=== PATIENT | male | born 1955 | race Caucasian/White ===

== ENCOUNTER 2018-03-28 17:48 | Emergency (ER) | payer SELFPAY ==
[~2018-03-28] VITALS: Ht 162.6 cm; Wt 71.7 kg
--- NOTE | 2018-03-28 18:07 | PHYS DOC ---
Adult General HPI HPI Patient is a 62 year old male who presents with left side facial droop and left side weakness. 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 He awoke about 2 hours prior to presentation with left-sided weakness and slurred speech he. He also had some loss of vision in the left visual almanza in the left eye. His last known normal was around noon today. The patient has no stroke history. He does have prior history of open-heart surgery. He has multiple stents in place. He states he does take some sort of anticoagulant medications but does not know what they are and he does not have them with him. Denies chest pain. He was at baseline health prior to onset of symptoms today. Review of Systems Review of Systems Constitutional: Denies fever or chills Eyes: Denies change in visual acuity HENT: Denies nasal congestion Respiratory: Denies cough or shortness of breath Cardiovascular: No additional information not addressed in HPI GI: Denies abdominal pain : Denies dysuria Musculoskeletal: Denies back pain or joint pain Integument: Denies rash or skin lesions Neurologic: Denies headache Endocrine: Denies polyuria All other systems were reviewed and found to be within normal limits, except as documented in this note. Current Medications Current Medications Current Medications Medications (Trade) Dose Ordered Sig/Zeynep Start Time Stop Time Status Last Admin Dose Admin Aspirin (Aspirin) 300 mg 1X ONCE 03/28/18 18:15 03/28/18 19:03 DC 03/28/18 20:04 300 MG Info (CONTRAST GIVEN -- Rx MONITORING) 1 each PRN DAILY PRN 03/28/18 19:15 03/30/18 19:14 Iohexol (Omnipaque 300 Mg/ml) 75 ml 1X ONCE 03/28/18 18:30 03/28/18 19:03 DC 03/28/18 18:30 60 ML Lorazepam (Ativan) 0.5 mg 1X ONCE 03/28/18 18:30 03/28/18 19:03 DC 03/28/18 19:35 0.5 MG Ondansetron HCl (Zofran) 4 mg PRN Q8HRS PRN 03/28/18 19:30 03/29/18 19:29 Sodium Chloride 1,000 ml @ 75 mls/hr [id number] 03/28/18 19:28 03/29/18 19:27 Allergies Allergies Allergies Coded Allergies Type Severity Reaction Last Updated Verified No Known Drug Allergies 03/28/18 No Physical Exam Physical Exam Constitutional: Well developed, well nourished, no acute distress, non-toxic appearance HENT: Normocephalic, atraumatic, bilateral external ears normal, oropharynx moist Eyes: PERRLA, EOMI, conjunctiva normal Neck: Normal range of motion, no tenderness Cardiovascular:Heart rate regular rhythm, no murmur Lungs & Thorax: Bilateral breath sounds clear to auscultation Abdomen: Bowel sounds normal, soft, no tenderness Skin: Warm, dry, no erythema Extremities: No tenderness, no edema Neurologic: Alert and oriented X 3, motor weakness in left upper and lower extremities. Left side facial droop. Slurred speech. Loss of vision over temporal visual almanza in the left eye. Psychologic: Affect normal Current Patient Data Lab Values Laboratory Tests Test 03/28/18 18:10 White Blood Count 12.8 x10^3/uL (4.0-11.0) H Red Blood Count 4.86 x10^6/uL (4.30-5.70) Hemoglobin 15.1 g/dL (13.0-17.5) Hematocrit 44.7 % (39.0-53.0) Mean Corpuscular Volume 92 fL (79-100) Mean Corpuscular Hemoglobin 31 pg (25-35) Mean Corpuscular Hemoglobin Concent 34 g/dL (31-37) Red Cell Distribution Width 14.2 % (11.5-14.5) Platelet Count 265 x10^3/uL (140-400) Neutrophils (%) (Auto) 82 % (31-73) H Lymphocytes (%) (Auto) 12 % (24-48) L Monocytes (%) (Auto) 4 % (0-9) Eosinophils (%) (Auto) 1 % (0-3) Basophils (%) (Auto) 1 % (0-3) Neutrophils # (Auto) 10.5 x10^3uL (1.8-7.7) H Lymphocytes # (Auto) 1.6 x10^3/uL (1.0-4.8) Monocytes # (Auto) 0.5 x10^3/uL (0.0-1.1) Eosinophils # (Auto) 0.1 x10^3/uL (0.0-0.7) Basophils # (Auto) 0.1 x10^3/uL (0.0-0.2) Prothrombin Time 13.0 SEC (11.7-14.0) Prothrombin Time INR 1.0 (0.8-1.1) PTT 27 SEC (24-38) Sodium Level 139 mmol/L (136-145) Potassium Level 3.7 mmol/L (3.5-5.1) Chloride Level 107 mmol/L (98-107) Carbon Dioxide Level 24 mmol/L (21-32) Anion Gap 8 (6-14) Blood Urea Nitrogen 17 mg/dL (8-26) Creatinine 1.3 mg/dL (0.7-1.3) Estimated GFR (Cockcroft-Gault) 56.1 Glucose Level 115 mg/dL (70-99) H Calcium Level 8.9 mg/dL (8.5-10.1) Troponin I Quantitative < 0.017 ng/mL (0.000-0.055) Laboratory Tests 03/28/18 18:10 Laboratory Tests 03/28/18 18:10 EKG EKG No STEMI Interpretation Time: 18:20 Radiology/Procedures Radiology/Procedures FINDINGS: There is mild motion artifact limiting optimal evaluation. No obvious evidence of pathologic extra-axial or intra-axial fluid collection. The ventricles and basal cisterns are within normal limits. No apparent large acute intracranial bleed. 6 mm focus of low attenuation in the left basal ganglia. There is a focus of low attenuation in the right parietal lobe extending from the lateral ventricle to the subcortical white matter. No suspicious calvarial lesions. Visualized paranasal sinuses and mastoid air cells are clear. Hypoplastic right mastoid air cells. IMPRESSION: Significant motion artifact limiting optimal evaluation. 1. Subcentimeter focus of low attenuation in the left basal ganglia most likely lacunar infarct, age indeterminate. 2. Small area of low-attenuation in the right parietal lobe extending from the lateral ventricle to the subcortical white matter may represent an infarct, age indeterminate or white matter changes from chronic microvascular ischemic disease. If concern for acute ischemic stroke is high, please consider MRI brain. FINDINGS: There is mild motion artifact limiting optimal evaluation. No obvious evidence of pathologic extra-axial or intra-axial fluid collection. The ventricles and basal cisterns are within normal limits. No apparent large acute intracranial bleed. 6 mm focus of low attenuation in the left basal ganglia. There is a focus of low attenuation in the right parietal lobe extending from the lateral ventricle to the subcortical white matter. No suspicious calvarial lesions. Visualized paranasal sinuses and mastoid air cells are clear. Hypoplastic right mastoid air cells. IMPRESSION: Significant motion artifact limiting optimal evaluation. 1. Subcentimeter focus of low attenuation in the left basal ganglia most likely lacunar infarct, age indeterminate. 2. Small area of low-attenuation in the right parietal lobe extending from the lateral ventricle to the subcortical white matter may represent an infarct, age indeterminate or white matter changes from chronic microvascular ischemic disease. If concern for acute ischemic stroke is high, please consider MRI brain. Critical findings were identified on 03/28/2018 6:03 PM, read back and verified with Dr. Bell on 03/28/2018 6:[address] Armando Tobin DO. Course & Med Decision Making Course & Med Decision Making Pertinent Labs and Imaging studies reviewed. (See chart for details) Patient is seen and examined immediately on arrival. The patient is unclear what time symptom onset occurred. He had been sleeping since noon. He awoke with symptoms. Additionally, the patient is on some anticoagulation type medications, but he cannot say what these are. He has history of prior stents so suspect some platelet inhibitor. In the emergency department, the patient was taken immediately to CT scan. His scan was returned as documented above. His symptoms are on the left side. NIH 9 18:55: CT scan is returned with some nonspecific findings. I discussed this patient with the acute ischemic stroke coverage team at [facility]. They encouraged a CT angiogram. Patient is already in CT for that study. 19:55: CT angiogram results are returned and documented above with a occlusion at the superior right him to short segment. I again discussed these findings with the neurologist at [facility] who did recommend transferring the patient for intervention. I discussed this plan of care with the patient. The patient is agreeable to transfer. The appropriate paperwork is completed. EMS is contacted to provide transportation. Accepting physician is Dr. Baca. Maddison Disclaimer Maddison Disclaimer This electronic medical record was generated, in whole or in part, using a voice recognition dictation system. MICHAELA BELL DO Mar 28, 2018 18:07
[2018-03-28] MEDS ORDERED: IV NORMAL SALINE 1000ML BAG 1,000 ML IV ONE (18:15)
[2018-03-28] MEDS ORDERED: ASPIRIN 300 MG SUPP.RECT PR ONE (18:15)
--- NOTE | 2018-03-28 18:15 | RAD ---
PQRS Compliance statement: One or more of the following individualized dose reduction techniques were utilized for this examination: 1. Automated exposure control. 2. Adjustment of the mA and/or kV according to patient size. 3. Use of iterative reconstruction technique. Indication:CODE STROKE, left SIDE WEAKNESS, FACIAL DROOP. NO PREVIOUS TECHNIQUE: CT head without IV contrast COMPARISON:None FINDINGS: There is mild motion artifact limiting optimal evaluation. No obvious evidence of pathologic extra-axial or intra-axial fluid collection. The ventricles and basal cisterns are within normal limits. No apparent large acute intracranial bleed. 6 mm focus of low attenuation in the left basal ganglia. There is a focus of low attenuation in the right parietal lobe extending from the lateral ventricle to the subcortical white matter. No suspicious calvarial lesions. Visualized paranasal sinuses and mastoid air cells are clear. Hypoplastic right mastoid air cells. IMPRESSION: Significant motion artifact limiting optimal evaluation. 1. Subcentimeter focus of low attenuation in the left basal ganglia most likely lacunar infarct, age indeterminate. 2. Small area of low-attenuation in the right parietal lobe extending from the lateral ventricle to the subcortical white matter may represent an infarct, age indeterminate or white matter changes from chronic microvascular ischemic disease. If concern for acute ischemic stroke is high, please consider MRI brain. Critical findings were identified on 03/28/2018 6:03 PM, read back and verified with Dr. Bell on 03/28/2018 6:[address] Armando Tobin DO. Electronically signed by: Armando Tobin DO (03/28/2018 6:12 PM) [facility]
[2018-03-28 18:20] LABS: BASO # 0.1 x10^3/uL (0.0-0.2); BASO % 1 % (0-3); EOS # 0.1 x10^3/uL (0.0-0.7); EOS % 1 % (0-3); HEMATOCRIT 44.7 % (39.0-53.0); HEMOGLOBIN 15.1 g/dL (13.0-17.5); LYMPH # 1.6 x10^3/uL (1.0-4.8); LYMPH % 12 % (24-48); MEAN CORPUSCULAR HEMOGLOBIN 31 pg (25-35); MEAN CORPUSCULAR HGB CONC 34 g/dL (31-37); MEAN CORPUSCULAR VOLUME 92 fL (79-100); MONO # 0.5 x10^3/uL (0.0-1.1); MONO % 4 % (0-9); NEUT # 10.5 x10^3uL (1.8-7.7); NEUT % 82 % (31-73); PLATELET COUNT 265 x10^3/uL (140-400); RED BLOOD COUNT 4.86 x10^6/uL (4.30-5.70); RED CELL DISTRIBUTION WIDTH 14.2 % (11.5-14.5); WHITE BLOOD COUNT 12.8 x10^3/uL (4.0-11.0)
[2018-03-28] MEDS ORDERED: IOHEXOL 300 MG/ML 100ML VIAL. IV ONE (18:30)
[2018-03-28 18:31] LABS: CALCIUM 8.9 mg/dL (8.5-10.1); CREATININE 1.3 mg/dL (0.7-1.3); GFR 56.1; POTASSIUM 3.7 mmol/L (3.5-5.1)
[2018-03-28] MEDS ORDERED: CONTRAST GIVEN. MC PRN (19:15)
[2018-03-28] MEDS ORDERED: IV NORMAL SALINE 1000ML BAG 1,000 ML IV SCH (19:28)
[2018-03-28] MEDS ORDERED: ONDANSETRON PF 4 MG/2 ML VIAL. IV PRN (19:30)
--- NOTE | 2018-03-28 19:46 | RAD ---
PQRS Compliance statement: One or more of the following individualized dose reduction techniques were utilized for this examination: 1. Automated exposure control. 2. Adjustment of the mA and/or kV according to patient size. 3. Use of iterative reconstruction technique. Indication:LEFT SIDE FACIAL DROOP AND COMPLETE LEFT SIDE WEAKNESS TECHNIQUE: CT angiogram of the head and neck with IV contrast with multiplanar MIP reformats. 3-D volume rendered postprocessing was performed. Stenosis was calculated using NASCET criteria. COMPARISON: None FINDINGS: The A1, A2, A3 segments of the bilateral CARLOS are patent. There is focal nonopacification of the superior M2 segment of the right MCA. The M1, M2, M3 segments of the left MCA are patent. The basilar artery is patent. The P1, P2 and P3 segments of the bilateral INFANTRY OFFICER are patent. Bilateral superior cerebellar arteries are patent. Bilateral anterior inferior cerebellar arteries are seen. The bilateral posterior inferior cerebellar arteries are patent. The bilateral vertebral arteries are patent. Bilateral cavernous and petrous segments of the ICA are patent. The bilateral extracranial ICA are patent with mild atherosclerotic disease at the carotid bulb. There is less than 25 percent narrowing of the origin of the left ICA. Bilateral common carotid arteries are patent. Conventional arch anatomy. Moderate atherosclerotic disease is seen in the origin of the left subclavian artery causing 50 percent narrowing. Bilateral. Arteries are patent. The major dural venous sinuses are patent. Bilateral ophthalmic arteries are patent. Orbits within normal limits. No enhancing brain lesion. The nasopharynx, oropharynx and hypopharynx are within normal limits. The submandibular glands, parotid glands and thyroid are within normal limits. No deep cervical adenopathy. Visualized lungs are clear. No suspicious bony lesion. There is complete opacification of the left maxillary sinus. IMPRESSION: 1. Focal nonopacification of the superior M2 segment of the right MCA concerning for occlusion. Clinically correlate with symptoms. Critical findings were identified on 03/28/2018 7:22 PM, read back and verified with Dr. Bell on 03/28/2018 7:[address] Armando Tobin DO. Electronically signed by: Armando Tobin DO (03/28/2018 7:43 PM) [facility]
[2018-03-28 19:50] VITALS: BP 196/99
--- NOTE | 2018-03-28 20:30 | HP ---
ADMIT DATE: 03/28/2018 CHIEF COMPLAINT: Mental status change, left facial droop, left-sided weakness. HISTORY OF PRESENT ILLNESS: The patient is a pleasant 62-year-old male who presented to the ER with above chief complaints. Basically, for the past day or so he has had left-sided weakness. 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 He is really not sure what time this all started. He fell asleep in his cab earlier, awoke 2 hours prior to the arrival to the ER and has these symptoms, left-sided weakness, left facial droop and some slurred speech. He seems to have some mental status change, he is also impulsive. He has got some visual field deficits. We checked a CAT scan in the ER. There is an old basal ganglia stroke on the left, but there is also a possible new right parietal stroke. We are going to admit the patient and consult Neurology. PAST MEDICAL HISTORY: None reported. ALLERGIES: None reported. FAMILY HISTORY: Diabetes. 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 He drinks socially. No drugs or smoking. MEDICATIONS: Reviewed, please refer to the MRAD. REVIEW OF SYSTEMS: GENERAL: No history of weight change, weakness or fevers. SKIN: No bruising, hair changes or rashes. EYES: No blurred, double or loss of vision. NOSE AND THROAT: No history of nosebleeds, hoarseness or sore throat. HEART: No history of palpitations, chest pain or shortness of breath on exertion. LUNGS: Denies cough, hemoptysis, wheezing or shortness of breath. GASTROINTESTINAL: Denies changes in appetite, nausea, vomiting, diarrhea or constipation. GENITOURINARY: No history of frequency, urgency, hesitancy or nocturia. NEUROLOGIC: He complains of left-sided weakness and left facial drooping and slurred speech. PSYCHIATRIC: No history of panic, anxiety or depression. ENDOCRINE: No history of heat or cold intolerance, polyuria or polydipsia. EXTREMITIES: Denies muscle weakness, joint pain, pain on walking or stiffness. PHYSICAL EXAMINATION: VITAL SIGNS: Temperature afebrile, pulse 92, respirations 18, blood pressure 142/90. GENERAL: He is in the ER room 3, seems to be impulsive. He asked me to give his glasses, I did. HEART: Distant S1, S2. LUNGS: Mostly clear. ABDOMEN: Soft. EXTREMITIES: Trace edema. SKIN: No rashes. ENDOCRINE: No thyromegaly. LYMPHATICS: No cervical nodes. HEMATOPOIETIC: No bruising. NEUROLOGIC: He has got left facial droop and left-sided weakness. He is also impulsive. LABORATORY DATA: Hematology is normal. CT of the head shows the above-mentioned old basal ganglia stroke and a right parietal stroke. ASSESSMENT AND PLAN: Stroke. The patient is being admitted. We will consult Neurology. Cardiac monitoring, daily aspirin. PT, OT, speech therapy. Resume home medicines, frequent labs. PROGNOSIS: Guarded. KAREN ASHER DO DR: SONYA/pancho JOB#: [id number] / [id number]
--- NOTE | 2018-03-29 06:04 | EKG ---
[facility] [address] [place] [address] Test Date: 2018-03-28 Test Time: 18:17:22 Pat Name: SATURNINO MADDOX Department: Room: Gender: M Welder Tech: : [id number] Requested By: MICHAELA FITZPATRICK Order Number: [id number] Reading MD: Raymond Good MD Measurements Intervals Winn Rate: 63 P: 48 MD: 136 QRS: -26 QRSD: 106 T: -34 QT: 434 QTc: 447 Interpretive Statements SINUS RHYTHM LEFTWARD AXIS QRS(T) CONTOUR ABNORMALITY CONSISTENT WITH INFERIOR INFARCT AGE UNDETERMINED Electronically Signed On 03-29-2018 11:30:18 CDT by Raymond Good MD
== END 2018-03-28 20:16 | disposition short-term general hospital (02) ==
LOC: ER 17:48
DX: R29.810 Facial weakness (principal); R47.81 Slurred speech; H54.62 Unqualified visual loss, left eye, normal vision right eye
CPT/HCPCS: 36415; 70450; 70496; 70498; 80048; 84484; 85025; 85610; 85730; 93005; 96374; 99285; J2060; J7030; Q9967